=== PATIENT | female | born 1980 | race Two or more races ===

== ENCOUNTER 2021-02-13 10:49 | Emergency (ER) | payer SELFPAY ==
[2021-02-13] MEDS ORDERED: Ondansetron 4 MG/2 ML SDV IVPUSH ONE ×2 (11:27→13:01)
[2021-02-13] MEDS ORDERED: Meclizine 12.5 MG Tab PO ONE (11:27)
[2021-02-13] MEDS ORDERED: Sodium Chloride 0.9% 1,000 ML IV ONE (11:28)
[2021-02-13] MEDS ORDERED: Metoclopramide 10 MG/2 ML SDV IVPUSH ONE (11:32)
--- NOTE | 2021-02-13 11:40 | EDM.PDOC ---
ED HPI GENERAL MEDICAL PROBLEM - General Chief Complaint: General Stated Complaint: DIABETIC COMPLAINT/NAUSEA Time Seen by Provider: 02/13/21 11:13 Source of Information: Reports: Patient History Limitations: Reports: No Limitations - History of Present Illness INITIAL COMMENTS - FREE TEXT/NARRATIVE: 41-year-old female presents to the ER with complaints of dizziness that she de scribes as the room spinning. Patient states she woke up this morning and was laying flat in bed when she reached over to her left side to grab her cell phone off her nightstand and states that the room suddenly began spinning. She states that it is worse when she is laying flat however she still does note some dizziness when she is up ambulating. She denies any headache, blurred vision or double vision. She denies any strokelike symptoms. She states she has had this happen once in the past however it resolved after a couple of minutes. She denies any recent fever, chills, nausea, vomiting or diarrhea. She denies any abdominal pain, earache cough or sore throat. She states that since developing the symptoms of dizziness this morning she has been nauseated and states she vomited a scant amount x1 this morning. Of note the patient is diabetic and she did check her blood sugar this morning at the time of the onset of symptoms and it was 134. - Related Data Allergies Allergy/AdvReac Type Severity Reaction Status Date / Time No Known Allergies Allergy Verified 02/13/21 11:17 Home Meds: Home Meds metFORMIN [Glucophage] 1,000 mg PO BIDMEALS 02/13/21 [History] Past Medical History Endocrine/Metabolic History: Reports: Diabetes, Type II Social & Family History - Tobacco Use Tobacco Use Status *Q: Never Tobacco User - Recreational Drug Use Recreational Drug Use: No ED ROS GENERAL - Review of Systems Review Of Systems: Comprehensive ROS is negative, except as noted in HPI. ED EXAM, GENERAL - Physical Exam Exam: See Below Exam Limited By: No Limitations General Appearance: Alert, WD/WN, Mild Distress Eye Exam: Left Eye: Nystagmus (when laying flat and turning head to left), Bilateral Eye: EOMI, PERRL Ears: Normal External Exam, Normal Canal, Hearing Grossly Normal, Normal TMs Ear Exam: Bilateral Ear: Canal Normal, TM normal Nose: Normal Inspection Throat/Mouth: Normal Inspection, Normal Lips, Normal Voice, No Airway Compromise Head: Atraumatic Neck: Normal Inspection, Supple Respiratory/Chest: No Respiratory Distress, Lungs Clear, Normal Breath Sounds, No Accessory Muscle Use, Chest Non-Tender Cardiovascular: Normal Peripheral Pulses, Regular Rate, Rhythm, No Edema, No Murmur Peripheral Pulses: 2+: Radial (L), Radial (R) GI/Abdominal: Normal Bowel Sounds, Soft, Non-Tender, No Distention (Female) Exam: Deferred Rectal (Female) Exam: Deferred Back Exam: Normal Inspection Extremities: Normal Inspection, Normal Range of Motion, Non-Tender, No Pedal Edema, Normal Capillary Refill Neurological: Alert, Oriented, CN II-XII Intact, Normal Cognition, No Mot or/Sensory Deficits Psychiatric: Normal Affect, Normal Mood Skin Exam: Warm, Dry, Intact, Normal Color, No Rash Lymphatic: No Adenopathy Course - Vital Signs Text/Narrative:: As stated above patient presents with acute onset of what she describes as the room spinning after she woke up this morning and reached for her cell phone while laying in bed. Upon assessment, full neuro exam is unremarkable. Patient states she is feeling dizzy when sitting up in bed however once I lay her flat in bed she states it is much worse. No nystagmus noted when turning her head to the right however when she turns her head to the left there is some nystagmus noted and the patient abruptly began vomiting. She did sit up at the side of the bed and states that once the vomiting resolved so did the dizziness as she was sitting at the bedside. I have ordered a CBC, CMP, C-reactive protein and magnesium level. We will also get a CT of the head without contrast. We will give her a liter of normal saline, Reglan and meclizine to see if we can abort the symptoms. Last Recorded V/S: Last Vital Signs Temp 96.9 F 02/13/21 11:12 Pulse 87 02/13/21 11:12 Resp 16 02/13/21 11:12 BP 114/77 02/13/21 11:12 Pulse Ox 97 02/13/21 11:12 Orthostatic Blood Pressure [ 106/85 Standing] Orthostatic Blood Pressure [ 113/82 Sitting] Orthostatic Blood Pressure [ 109/79 Supine] - Orders/Labs/Meds Orders: Active Orders 24 hr Category Date Time Status Head wo Cont [CT] Stat Exams 02/13/21 11:28 Taken Labs: Laboratory Tests 02/13/21 02/13/21 02/13/21 Range/Units 11:15 11:30 11:30 WBC 13.94 H (3.98-10.04) K/mm3 RBC 4.55 (3.98-5.22) M/mm3 Hgb 14.6 (11.2-15.7) gm/dl Hct 41.7 (34.1-44.9) % MCV 91.6 (79.4-94.8) fl MCH 32.1 (25.6-32.2) pg MCHC 35.0 (32.2-35.5) g/dl RDW Std Deviation 40.1 (36.4-46.3) fL Plt Count 394 H (182-369) K/mm3 MPV 9.5 (9.4-12.3) fl Neut % (Auto) 75.8 H (34.0-71.1) % Lymph % (Auto) 18.2 L (19.3-51.7) % Beaver % (Auto) 4.6 L (4.7-12.5) % Eos % (Auto) 0.9 (0.7-5.8) Baso % (Auto) 0.2 (0.1-1.2) % Neut # (Auto) 10.56 H (1.56-6.13) K/mm3 Lymph # (Auto) 2.54 (1.18-3.74) K/mm3 Beaver # (Auto) 0.64 H (0.24-0.36) K/mm3 Eos # (Auto) 0.13 (0.04-0.36) K/mm3 Baso # (Auto) 0.03 (0.01-0.08) K/mm3 Sodium 142 (136-145) mEq/L Potassium 3.9 (3.5-5.1) mEq/L Chloride 105 (98-107) mEq/L Carbon Dioxide 24 (21-32) mEq/L Anion Gap 16.9 H (5-15) BUN 14 (7-18) mg/dL Creatinine 0.8 (0.55-1.02) mg/dL Est Cr Clr Drug Dosing 80.72 mL/min Estimated GFR (MDRD) > 60 (>60) mL/min BUN/Creatinine Ratio 17.5 (14-18) Glucose 138 H (70-99) mg/dL POC Glucose 134 H (70-99) mg/dL Calcium 8.9 (8.5-10.1) mg/dL Magnesium 1.8 (1.8-2.4) mg/dL Total Bilirubin 0.3 (0.2-1.0) mg/dL AST 14 L (15-37) U/L ALT 18 (14-59) U/L Alkaline Phosphatase 65 (46-116) U/L C-Reactive Protein <0.2 (<1.0) mg/dL Total Protein 8.1 (6.4-8.2) g/dl Albumin 4.1 (3.4-5.0) g/dl Globulin 4.0 gm/dL Albumin/Globulin Ratio 1.0 (1-2) Meds: Medications Discontinued Medications Generic Name Dose Route Start Last Admin Trade Name Freq PRN Reason Stop Dose Admin Sodium Chloride 1,000 mls @ 999 mls/hr 02/13/21 11:28 02/13/21 11:36 Normal Saline IV 02/13/21 12:28 999 mls/hr ONETIME ONE Administration Lorazepam 0.5 mg 02/13/21 13:00 02/13/21 13:21 Lorazepam 2 Mg/Ml Sdv IVPUSH 02/13/21 13:01 0.5 mg ONETIME ONE Administration Meclizine HCl 12.5 mg 02/13/21 11:27 02/13/21 11:38 Meclizine 12.5 Mg Tab PO 02/13/21 11:28 12.5 mg ONETIME ONE Administration Metoclopramide HCl 5 mg 02/13/21 11:32 02/13/21 11:41 Metoclopramide 10 Mg/2 Ml Sdv IVPUSH 02/13/21 11:33 5 mg ONETIME ONE Administration Ondansetron HCl 4 mg 02/13/21 11:27 02/13/21 11:40 Ondansetron 4 Mg/2 Ml Sdv IVPUSH 02/13/21 11:28 Not Given ONETIME ONE Ondansetron HCl 4 mg 02/13/21 13:01 02/13/21 13:20 Ondansetron 4 Mg/2 Ml Sdv IVPUSH 02/13/21 13:02 4 mg ONETIME ONE Administration - Re-Assessments/Exams Free Text/Narrative Re-Assessment/Exam: 02/13/21 12:23 Hematology reveals a WBC of 13.94, hemoglobin 14.6, hematocrit 41.7, platelet count 394 Chemistry reveals a sodium of 142, potassium 3.9, carbon dioxide 24, anion gap 16.9, BUN 14, creatinine 0.8, glucose 138, calcium 8.9, magnesium 1.8, total bilirubin 0.3, AST 14, ALT 18, C-reactive protein less than 0.2 02/13/21 12:24 [facility] radiologist impression: 1. No acute intracranial abnormality. Patient states she is feeling much better and her dizziness has almost completely resolved. We will let her receive the remaining IV fluids are infusing and then have nursing staff ambulate her. If she tolerates this we will discharge her to home. 02/13/21 13:02 Pt was up and ambulated with nursing staff and stated that she felt good. I was ready to send her home when she then called nursing back into the room stating that she felt dizzy again and nauseated. I have ordered ativan and zofran. 02/13/21 13:27 Nursing staff reports to me that the patient states that she is tired and would like to go home. She will be discharged. Departure - Departure Time of Disposition: 13:27 Disposition: Home, Self-Care 01 Condition: Good Clinical Impression: Vertigo - Discharge Information Instructions: Vertigo, [id number] Referrals: Ella Marie NP [Primary Care Provider] - Forms: ED Department Discharge Additional Instructions: You were seen in the emergency department today with complaints of dizziness when you woke up this morning. CT scan of the head was completed and was unremarkable. You were given medications to help with the dizziness and these did seem to help. You can take meclizine, and [id number] medication for dizziness. This medication can be purchased at [facility] or any pharmacy in [facility]. You may take 1 tab up to 3 times daily for the dizziness. Keep in mind that a side effect of this medication is drowsiness, so you should not be driving or operating any heavy machinery while taking this medication. The vertigo likely will resolve over the next couple of days. If it does not, recommend that you follow-up with your primary care provider early this next week. Should your condition worsen or change, do not hesitate returning to the emergency department. Sepsis Event Note (ED) - Evaluation Sepsis Screening Result: No Definite Risk - Focused Exam Vital Signs: Vital Signs Temp Pulse Resp BP Pulse Ox 02/13/21 11:12 96.9 F 87 16 114/77 97 - My Orders Last 24 Hours: My Active Orders 02/13/21 11:28 Head wo Cont [CT] Stat - Assessment/Plan Last 24 Hours: My Active Orders 02/13/21 11:28 Head wo Cont [CT] Stat
[2021-02-13] MEDS ORDERED: LORazepam 2 MG/ML SDV IVPUSH ONE (13:00)
--- NOTE | 2021-02-14 13:45 | CT ---
Head CT Technique: Multiple axial sections through the brain were obtained. Intravenous contrast was not utilized. Reconstructed coronal and sagittal images were obtained. Comparison: No prior intracranial imaging is available. Limitations: Mild motion artifact is present. Findings: Ventricles along with basal cisterns and sulci over the convexities are within normal limits for the patient's age. No abnormal parenchymal densities are seen. No evidence of intracranial hemorrhage is seen. No midline shift or mass-effect is seen. Bone window settings were reviewed. Visualized paranasal and mastoid sinuses show nothing acute. No acute calvarial abnormality is appreciated. Impression: 1. Mild motion artifact. 2. Nothing acute is otherwise seen on noncontrast head CT study. Diagnostic code #2 I agree with preliminary report from [facility], finalized on 02/13/21, 12:57 PM CDT, code 1
== END 2021-02-13 13:34 | disposition home or self-care (01) ==
LOC: JD.ED 10:49
DX: R42 Dizziness and giddiness (principal); E11.9 Type 2 diabetes mellitus without complications; Z79.84 Long term (current) use of oral hypoglycemic drugs
CPT/HCPCS: 36415; 70450; 80053; 82947; 83735; 85025; 86140; 96374; 96375; 99284; A9270; J2060; J2405; J2765; J7030; 99283